=== PATIENT | female | born 1965 | race Caucasian/White ===

== ENCOUNTER → 2016-09-24 | Outpatient (CLI) | payer BC | END | disposition disaster alternative care site (69) | LOC: GRAD 09:28 | DX: M79.631 Pain in right forearm (principal) ==

== ENCOUNTER → 2016-12-30 | Outpatient (CLI) | payer BC | LOC: GRAD 12-22 14:00 → GKIC 11:30 → GRAD 11:30 → GKIC 11:36 | DX: M25.562 Pain in left knee (principal); J90 Pleural effusion, not elsewhere classified; M94.20 Chondromalacia, unspecified site ==